=== PATIENT | male | born 1980 | race Caucasian/White ===

== ENCOUNTER 2019-07-15 21:36 | Emergency (ER) | payer OTHER ==
[~2019-07-15] VITALS: Ht 185.4 cm; Wt 95.3 kg
[2019-07-15 22:24] LABS: ABSOLUTE BASOPHILS 0.1 thou/uL (0.0-0.2); ABSOLUTE EOSINOPHILS 0.4 thou/uL (0.0-0.7); ABSOLUTE LYMPHOCYTES 4.4 thou/uL (0.8-5.3); ABSOLUTE MONOCYTES 0.6 thou/uL (0.0-1.2); ABSOLUTE NEUTROPHILS 8.4 thou/uL (1.6-8.1); BASOPHILS 0.9 %; HEMATOCRIT 38.1 % (42.0-52.0); HEMOGLOBIN 13.4 gm/dL (14.0-18.0); LYMPHOCYTES 31.5 %; MCHC 35.3 g/dL (28.0-37.0); MONOCYTES 4.3 %; MPV 8.5 fl. (7.2-11.1); NUCLEATED RBCS 0 /100WBC; PLATELET COUNT* 282 thou/uL (150-400); POLYS 60.3 %; RBC 4.48 mil/uL (4.50-6.00); RDW-CV 14.1 % (10.5-14.5); WBC 13.9 thou/uL (4.0-11.0)
[2019-07-15 22:31] LABS: CALCIUM 8.1 mg/dL (8.5-10.1); CREATININE 1.1 mg/dL (0.6-1.3); POTASSIUM 3.4 mmol/L (3.5-5.1)
[2019-07-15 22:36] LABS: ALBUMIN 3.5 g/dL (3.4-5.0); TOTAL BILIRUBIN 0.5 mg/dL (<0.1-1.0)
[2019-07-15 22:59] LABS: SGOT 9.6 U/L (15-37); SGPT 28.8 U/L (30-65); TOTAL PROTEIN 6.2 g/dL (6.4-8.2)
[2019-07-16] MEDS ORDERED: NORCO 7.5-3251 EACH PO (00:35)
[2019-07-16] MEDS ORDERED: CLEOCIN HCL150 MG PO (00:35)
[2019-07-16 01:46] VITALS: BP 125/83
[2019-07-18] MEDS ORDERED: NEXIUM40 MG PO (07:38)
== END 2019-07-16 01:48 | disposition home or self-care (01) ==
LOC: M.ERS 21:36
PROVIDERS: Emergency Medicine
DX: L03.311 Cellulitis of abdominal wall (principal); L02.211 Cutaneous abscess of abdominal wall; G43.909 Migraine, unspecified, not intractable, without status migrainosus

== ENCOUNTER → 2019-07-21 | Day surgery (SDC) | payer OTHER ==
[~2019-07-21] MED LIST: CLEOCIN HCL150 MG PO; NEXIUM40 MG PO; NORCO 5-325 TA1 EAC1 PO; NORCO 7.5-3251 EACH PO
--- NOTE | ~2019-07-21 | OP ---
[address] [address] OPERATIVE REPORT Name: HALLEY HUDDLESTON Room: [facility]#: [id number] Admission: 07/21/19 Attend Phys: Kale Lynch DO Discharge: Date of : 84 Report #: [id number] THIS REPORT FOR: //name// CC: Kale Prince DATE OF SERVICE: 07/21/2019 REFERRING PHYSICIAN: Nurse practitioner, Salena Soni nurse practitioner. PREOPERATIVE DIAGNOSIS: Right inguinal hernia. POSTOPERATIVE DIAGNOSIS: Right direct and indirect inguinal hernia. PROCEDURE: Da Lory robotic-assisted right inguinal hernia repair with mesh. SURGEON: Kale Lynch DO. PHARMACY CONSULTANT: Héctor Arteaga DO ANESTHESIA: General endotracheal. ESTIMATED BLOOD LOSS: Less than 20 mL. COMPLICATIONS: None. DESCRIPTION OF PROCEDURE: After obtaining proper consents and discussing risks and complications with the patient, he was taken to the operating room, laid in the supine position, administered general anesthesia. He was then prepped and draped in the usual sterile fashion. A timeout was performed, we confirmed the appropriate patient and procedure. Preoperative antibiotics had been given. SCDs were in place. We then made a small supraumbilical skin incision with a #11 scalpel blade. This was carried down through the skin into the subcutaneous tissue using electrocautery for hemostasis. Once the fascia was encountered, it was incised along the midline, grasped, and elevated with Nolvia clamps. The peritoneum was then bluntly opened using a hemostat. We then placed 2-0 Vicryl sutures in a xqrivj-tu-apels fashion to secure the da Lory camera port, which was then inserted and insufflation was begun. Once insufflation was complete, full visual inspection of the anterior abdominal organs was performed. This revealed only a right fairly large direct inguinal hernia and a small indirect inguinal hernia. There was no left inguinal hernia identified. We then placed two more da Lory ports, one in the right upper quadrant, one in the left upper quadrant. We then docked the da Lory robot. Once the robot was docked, we inserted monopolar scissors in the right upper quadrant, bipolar fenestrated grasper in the left upper quadrant. I then broke scrub [place] [address] OPERATIVE REPORT Name: HALLEY HUDDLESTON Room: [facility]#: [id number] Admission: 07/21/19 Attend Phys: Kale Lynch DO Discharge: Date of : 84 Report #: [id number] Once on console, I opened the peritoneum from the median umbilical ligament laterally to the ASIS. I then developed the preperitoneal space going all the way down below the pubic ramus medially. I was then able to reduce the fairly large direct inguinal hernia back into the peritoneal cavity. I then continued the dissection laterally along the spermatic cord and cord structures and dissected the small indirect inguinal hernia sac free from the cord. I then checked for a cord lipoma. There was none identified. I then continued the dissection all the way laterally to the ASIS to allow for placement of a large Bard 3DMax mesh. The mesh was then inserted and opened in its entirety and then, sutured in place to Jordy's ligament medially and then, medial and lateral to the inferior epigastric vessels. I then closed the peritoneal flap using a running 2-0 absorbable V-Loc suture. There was a small defect in the peritoneal flap, which was closed using 2-0 Vicryl suture. We then removed all of the needles. I then broke scrub and went back to the patient's bedside where we removed the instruments and undocked the da Lory robot. The 12 mm right upper quadrant trocar site was closed using the PMI closure device. The umbilical fascia was then closed using the 2 previously placed 0 Vicryl sutures plus an additional 0 Vicryl suture. Skin incisions were all closed using 4-0 Monocryl subcuticular stitches. Mastisol, Steri-Strips, sterile OpSite, and pressure dressings were placed. The patient was awakened in the operating room and transported to recovery room in stable condition. By: [id number] Suellen Lynch DO /italo
[2019-07-21 08:50] LABS: HEMATOCRIT 43.3 % (42.0-52.0); HEMOGLOBIN 15.6 gm/dL (14.0-18.0); MCH 30.1 pg (26.0-34.0); MCHC 35.9 g/dL (28.0-37.0); MCV 83.8 fL (80.0-100.0); MPV 8.4 fl. (7.2-11.1); RBC 5.17 mil/uL (4.50-6.00); RDW-CV 14.5 % (10.5-14.5); WBC 10.3 thou/uL (4.0-11.0)
[2019-07-21 09:10] LABS: ALBUMIN 3.9 g/dL (3.4-5.0); CALCIUM 8.4 mg/dL (8.5-10.1); POTASSIUM 3.7 mmol/L (3.5-5.1); TOTAL BILIRUBIN 0.5 mg/dL (<0.1-1.0)
[2019-07-21 09:28] LABS: TOTAL PROTEIN 5.8 g/dL (6.4-8.2)
--- NOTE | 2019-07-21 10:34 | EKG ---
[place] [address] ELECTROCARDIOGRAM REPORT Name: HALLEY HUDDLESTON Room: [facility]#: [id number] Admission: 07/21/19 Attend Phys: Kale Lynch DO Discharge: Date of : 84 Report #: [id number] THIS REPORT FOR: //name// [facility] Test Date: 2019-07-21 Test Time: 08:49:41 Pat Name: HALLEY ORTEZCHRISTY Department: Room: Gender: M [employer]: RT : 1980 Requested By: Kale Lynch Order Number: [id number] Reading MD: Terence Gutierrez Measurements Intervals [place] Rate: 84 P: 27 ME: 152 QRS: 12 QRSD: 99 T: 1 QT: 365 QTc: 432 Interpretive Statements Sinus rhythm No previous ECG available for comparison Electronically Signed On 07-21-2019 10:34:12 CDT by Terence Gutierrez [email or web address] <ELECTRONICALLY SIGNED> By: Terence Gutierrez MD, [facility] 07/21/19 1034 0849 0849 Terence Gutierrez MD, FACC /EPI
== END | disposition home or self-care (01) ==
LOC: M.SUR 08:27
PROVIDERS: Surgery
DX: K40.90 Unilateral inguinal hernia, without obstruction or gangrene, not specified as recurrent (principal); I10 Essential (primary) hypertension; G43.909 Migraine, unspecified, not intractable, without status migrainosus; K21.9 Gastro-esophageal reflux disease without esophagitis; G47.30 Sleep apnea, unspecified; F17.210 Nicotine dependence, cigarettes, uncomplicated; Z98.890 Other specified postprocedural states; Z79.899 Other long term (current) drug therapy; Z72.89 Other problems related to lifestyle; Z88.8 Allergy status to other drugs, medicaments and biological substances